=== PATIENT | male | born 1990 | race Caucasian/White ===

== ENCOUNTER 2024-12-23 10:26 | Emergency (ER) | payer SELFPAY ==
[2024-12-23 10:59] VITALS: BP 123/88; PULSE 82; RESP 19; TEMP 98.4; BMI 33.7
[2024-12-23] MEDS ORDERED: LIDOCAINE 4% PATCH TP ONE (11:21)
[2024-12-23] MEDS ORDERED: ACETAMINOPHEN INJECTION 100 ML ONE (11:21)
[2024-12-23] MEDS ORDERED: ONDANSETRON 4 MG/2 ML VIAL ONE (11:22)
[2024-12-23] MEDS: LACTATED RINGERS SOLUTION 1000 ML INFUS.BAG IV ONE (11:43)
[2024-12-23] MEDS: LIDOCAINE 4% PATCH TP ONE (11:43)
[2024-12-23] MEDS: ONDANSETRON 4 MG/2 ML VIAL IVPUSH ONE (11:43)
[2024-12-23] MEDS: ACETAMINOPHEN 1000 MG/100 ML BAG IVPB ONE (11:43)
[2024-12-23 11:49] LABS: BASO % 0.2 % (0-2.0); HEMATOCRIT 41.3 % (35.4-49); HEMOGLOBIN 13.8 GM/dL (11.7-16.9); LYMPH % 5.9 % (8-40); MCH 32.5 pg (25.7-33.7); MCHC 33.4 g/dl (32.0-35.9); MEAN CELL VOLUME 97.5 fl (80-96); MEAN PLT VOLUME 7.3 fl (7.5-11.1); MONO % 4.6 % (3.8-10.2); NEUT % 89.3 % (42.8-82.8); PLATELET COUNT 297 10^3/uL (134-434); RBC 4.24 M/mm3 (4.00-5.60); RDW 13.2 % (11.9-15.9); WHITE BLOOD COUNT 15.2 K/mm3 (4.0-10.0)
[2024-12-23 12:13] LABS: POTASSIUM 3.9 mmol/L (3.5-5.1)
[2024-12-23 12:14] LABS: CALCIUM 9.5 mg/dL (8.5-10.1)
[2024-12-23 12:15] LABS: ALBUMIN 4.5 g/dl (3.4-5.0); BLOOD UREA NITROGEN 13.6 mg/dL (7-18); MAGNESIUM 1.6 mg/dL (1.8-2.4)
[2024-12-23 12:18] LABS: CREATININE 0.7 mg/dL (0.55-1.3)
[2024-12-23 12:19] LABS: BILIRUBIN,TOTAL 0.5 mg/dL (0.2-1)
[2024-12-23] MEDS ORDERED: MAGNESIUM SULFATE IN WATER 2 GM/50 ML IVPB IVPB ONE (12:50)
[2024-12-23] MEDS: MAGNESIUM SULFATE IN WATER 2 GM/50 ML IVPB IVPB ONE (12:53)
[2024-12-23 14:57] LABS: POTASSIUM 4.4 mmol/L (3.5-5.1)
[2024-12-23 15:00] LABS: CALCIUM 9.2 mg/dL (8.5-10.1)
[2024-12-23 15:01] LABS: BLOOD UREA NITROGEN 12.6 mg/dL (7-18)
[2024-12-23 15:04] LABS: CREATININE 0.6 mg/dL (0.55-1.3)
[2024-12-23] MEDS ORDERED: chlordiazePOXIDE HCL 25 MG CAPSULE ONE (15:33)
[2024-12-23] MEDS: chlordiazePOXIDE HCL 25 MG CAPSULE PO ONE (15:37)
[2024-12-23] MEDS ORDERED: LIDOCAINE PATCH REMOVAL MC ONE (22:00)
== END 2024-12-23 15:41 | disposition home or self-care (01) ==
LOC: JERFT 10:26
PROC: 3E033GC Introduction of Other Therapeutic Substance into Peripheral Vein, Percutaneous Approach (ICD-10-PCS; principal; 2024-12-23)
PROC: 3E033NZ Introduction of Analgesics, Hypnotics, Sedatives into Peripheral Vein, Percutaneous Approach (ICD-10-PCS; 2024-12-23)
PROC: 3E033GC Introduction of Other Therapeutic Substance into Peripheral Vein, Percutaneous Approach (ICD-10-PCS; 2024-12-23)
DX: F10.929 Alcohol use, unspecified with intoxication, unspecified (principal); Y90.9 Presence of alcohol in blood, level not specified; R51.9 Headache, unspecified; R53.1 Weakness; R11.2 Nausea with vomiting, unspecified; M54.2 Cervicalgia; G89.29 Other chronic pain
CPT/HCPCS: 36415; 80048; 80053; 83735; 85025; 99284-25; J0131